=== PATIENT | female | born 2000 | race Two or more races ===

== ENCOUNTER 2024-07-08 20:49 | Emergency (ER) | payer OTHER ==
[2024-07-08 21:14] VITALS: O2SAT 98
[2024-07-08 21:30] LABS: BILIRUBIN,URINE NEGATIVE (NEGATIVE); GLUCOSE, URINE (UA) NEGATIVE (NEGATIVE); KETONES,URINE (UA) NEGATIVE (NEGATIVE); LEUKOCYTE ESTERASE, URINE NEGATIVE (NEGATIVE); NITRITE,URINE NEGATIVE (NEGATIVE); OCCULT BLOOD,URINE TRACE-INTA (NEGATIVE); PH,URINE 5.5 PH (5.0-7.5); PROTEIN,URINE NEGATIVE (NEGATIVE); UROBILINOGEN,URINE 0.2 (NORMAL) E.U./dL (NORMAL)
[2024-07-08 21:31] LABS: BASOPHILS % (AUTO) 0.3 %; EOSINOPHILS # (AUTO) 0.1 10^3/uL (0.0-0.7); EOSINOPHILS % (AUTO) 1.3 %; HCT - HEMATOCRIT 44.2 % (37.0-47.0); HGB - HEMOGLOBIN 15.4 g/dL (12.0-16.0); LYMPHOCYTES # (AUTO) 2.2 10^3/uL (1.5-3.5); LYMPHOCYTES % (AUTO) 23.4 %; MEAN CORPUSCULAR HEMOGLOBIN 30.2 pg (27.0-31.0); MEAN CORPUSCULAR HGB CONC 34.8 g/dL (32.0-36.0); MEAN CORPUSCULAR VOLUME 86.7 fL (81.0-99.0); MEAN PLATELET VOLUME 9.5 fL (7.9-10.8); MONOCYTES # (AUTO) 0.7 10^3/uL (0.0-1.0); MONOCYTES % (AUTO) 6.9 %; NEUTROPHILS # (AUTO) 6.5 10^3/uL (1.5-6.6); NEUTROPHILS % (AUTO) 67.6 %; PLT - PLATELET COUNT 364 10^3/uL (130-450); RED CELL DISTRIBUTION WIDTH 11.9 % (12.0-15.0); WHITE BLOOD COUNT 9.6 x10^3/uL (4.8-10.8)
[2024-07-08 21:35] LABS: CLARITY,URINE CLEAR (CLEAR)
[2024-07-08 21:47] LABS: ALBUMIN 4.9 g/dL (3.2-5.5); ALBUMIN/GLOBULIN RATIO 2.1 (1.0-2.2); BILIRUBIN,TOTAL 0.3 mg/dL (0.2-1.0); CALCIUM 10.1 mg/dL (8.5-10.3); CREATININE 0.8 mg/dL (0.6-1.3); TOTAL PROTEIN 7.2 g/dL (6.4-8.9)
[2024-07-08 22:17] LABS: HCG UR QUAL NEGATIVE
--- NOTE | 2024-07-08 22:46 | ED Physician Documentation ---
PD HPI ABD PAIN - Stated complaint Stated Complaint: R SIDE PX - Chief complaint Chief Complaint: Abd Pain - History obtained from History obtained from: Patient - History of Present Illness Timing - onset: Yesterday Timing - duration: Days (2) Timing - details: Gradual onset Pain level max: 10 Pain level now: 8 Quality: Aching, Pain Associated symptoms: No: Fever, Vomiting, Hematemesis, Diarrhea, Constipation, Melena, Hematochezia, Dysuria, Hematuria, Chest pain, Vaginal bleeding, Vaginal dc - Additional information Additional information: Patient is a 23-year-old female who presents to the emergency department right lower quadrant abdominal pain. This been ongoing since yesterday and gradually worsening. Nothing seems to make it better or worse. Has a history of a partial hysterectomy. Her right ovary was removed. No vomiting. No diarrhea. No constipation. No change in sexual partners. No vaginal bleeding or discharge. No urinary symptoms. No fevers. No chills. No recent antibiotics. No recent travel. Review of Systems Constitutional: denies: Fever, Chills Respiratory: denies: Cough GI: denies: Nausea, Vomiting, Diarrhea Skin: denies: Rash Musculoskeletal: denies: Neck pain, Back pain Neurologic: denies: Headache PD PAST MEDICAL HISTORY - Past Medical History Past Medical History: Yes MECHANICAL DETAILER: Endometriosis Other Past Medical History: POTS - Past Surgical History Past Surgical History: Yes /MECHANICAL DETAILER: Hysterectomy - Present Medications Home Medications: Ambulatory Orders Medication Instructions Recorded Confirmed Ketorolac [Toradol] 10 mg PO Q6H PRN #20 tablet 07/09/24 - Allergies Allergies/Adverse Reactions: Allergies Allergy/AdvReac Type Severity Reaction Status Date / Time azithromycin Allergy Emesis Verified 07/08/24 21:03 codeine Allergy Respiratory Verified 07/08/24 21:02 hydromorphone [From Dilaudid] Allergy Respiratory Verified 07/08/24 21:03 metoclopramide [From Reglan] AdvReac Hallucinati Verified 07/08/24 21:03 ons - Social History Does the pt smoke?: No Smoking Status: Never smoker Does the pt drink ETOH?: No Does the pt have substance abuse?: No - Immunizations Immunizations are current?: Yes - POLST Patient has POLST: No PD ED PE NORMAL - Vitals Vital signs reviewed: Yes - General General: Alert and oriented X 3, No acute distress, Well developed/nourished - HEENT HEENT: Moist mucous membranes - Neck Neck: Supple, no meningeal sign - Cardiac Cardiac: RRR, Strong equal pulses - Respiratory Respiratory: No respiratory distress, Clear bilaterally - Abdomen Abdomen: Soft, Non distended, Other (Tender to palpation suprapubic, right lower quadrant and left lower quadrant. No peritoneal signs.) - Back Back: No CVA TTP, No spinal TTP - Derm Derm: Warm and dry - Extremities Extremities: No edema - Neuro Neuro: Alert and oriented X 3 - Psych Psych: Normal mood, Normal affect Results - Vitals Vitals: Vital Signs - 24 hr 07/08/24 07/08/24 21:04 23:09 Temperature 36.4 C L Heart Rate 118 H 85 Respiratory 16 18 Rate Blood Pressure 100/77 137/80 H O2 Saturation 98 98 Oxygen O2 Source Room air - Labs Labs: Laboratory Tests 07/08/24 07/08/24 07/08/24 21:15 21:15 21:26 WBC 9.6 RBC 5.10 Hgb 15.4 Hct 44.2 MCV 86.7 MCH 30.2 MCHC 34.8 RDW 11.9 L Plt Count 364 MPV 9.5 Neut # (Auto) 6.5 Lymph # (Auto) 2.2 Rogers # (Auto) 0.7 Eos # (Auto) 0.1 Baso # (Auto) 0.0 Absolute Nucleated RBC 0.00 Nucleated RBC % 0.0 Sodium Potassium Chloride Carbon Dioxide Anion Gap BUN Creatinine Estimated GFR (MDRD) Glucose Calcium Total Bilirubin AST ALT Alkaline Phosphatase Total Protein Albumin Globulin Albumin/Globulin Ratio Lipase Urine Color YELLOW Urine Clarity CLEAR Urine pH 5.5 Ur Specific Otis 1.020 Urine Protein NEGATIVE Urine Glucose (UA) NEGATIVE Urine Ketones NEGATIVE Urine Occult Blood TRACE-INTA Urine Nitrite NEGATIVE Urine Bilirubin NEGATIVE Urine Urobilinogen 0.2 (NORMAL) Ur Leukocyte Esterase NEGATIVE Ur Microscopic Review NOT INDICATED Urine Culture Comments NOT INDICATED Urine HCG, Qual NEGATIVE 07/08/24 21:26 WBC RBC Hgb Hct MCV MCH MCHC RDW Plt Count MPV Neut # (Auto) Lymph # (Auto) Rogers # (Auto) Eos # (Auto) Baso # (Auto) Absolute Nucleated RBC Nucleated RBC % Sodium 135 Potassium 4.0 Chloride 103 Carbon Dioxide 24 Anion Gap 8.0 BUN 16 Creatinine 0.8 Estimated GFR (MDRD) 87 L Glucose 104 Calcium 10.1 Total Bilirubin 0.3 AST 12 ALT 9 L Alkaline Phosphatase 66 Total Protein 7.2 Albumin 4.9 Globulin 2.3 Albumin/Globulin Ratio 2.1 Lipase 52 Urine Color Urine Clarity Urine pH Ur Specific Otis Urine Protein Urine Glucose (UA) Urine Ketones Urine Occult Blood Urine Nitrite Urine Bilirubin Urine Urobilinogen Ur Leukocyte Esterase Ur Microscopic Review Urine Culture Comments Urine HCG, Qual - Rads (name of study) Pelvic ultrasound Relevant Findings:: Final report received, See rad report CT abdomen and pelvis Relevant Findings:: Final report received, See rad report PD Medical Decision Making - ED course Complexity details: reviewed results, re-evaluated patient, considered differential, d/w patient ED course: 23-year-old female with pelvic pain. Has a large ovarian cyst on her left ovary. She has had a partial hysterectomy in the past. Has a history of Neil-Danlos syndrome. Is followed by the [facility] gynecology. Does not have any evidence of torsion currently, did discuss the case with Dr. Beltre, gynecology on-call, recommends that if her pain cannot be controlled, that she be placed into observation and they can discuss surgical removal of the cyst. He states that this would likely be better done at a larger facility as there could be risk of damage to her low and remaining ovary. Patient's pain is well-controlled after a dose of Toradol. She requests a Toradol prescription for home. This was done. She does not want to stay in the hospital at this time and I think that is reasonable. Her CT scan shows a normal appendix. She will follow-up with her land degradation analyst for further care. Patient counseled regarding signs and symptoms for which I believe and urgent re-evaluation would be necessary. Patient with good understanding of and agreement to plan and is comfortable going home at this time This document was made in part using voice recognition software. While efforts are made to proofread this document, sound alike and grammatical errors may occur. Departure - Departure Disposition: Home, Self Care Clinical Impression: Ovarian cyst Qualifiers: Laterality: left Qualified Code(s): N83.202 - Unspecified ovarian cyst, left side Condition: Good Instructions: ED Cyst Ovarian Follow-Up: your,doctor in 1 week [Other] Prescriptions: Ketorolac [Toradol] 10 mg PO Q6H PRN #20 tablet PRN Reason: back pain Comments: As we discussed you have a left-sided ovarian cyst.As we discussed you have a left-sided ovarian cyst. This is approximately 6.3 x 3.4 x 5 cm. This is likely the cause of your pain. There is no evidence of torsion or twisting at this time. Your CT shows a normal appendix. Your prescription was sent to [facility] in [place]. Please return if you worsen. Please follow-up with your land degradation analyst at the [facility]. PROCEDURE: Pelvic w/Transvag+Doppler Comp INDICATIONS: pelvic pain TECHNIQUE: Real-time scanning was performed of the pelvic organs, with image documentation. Additional endovaginal scanning was necessary due to incomplete visualization of the adnexal and endometrial structures by transabdominal scanning. Doppler interrogation was performed of the left ovary. COMPARISON: None. FINDINGS: Uterus: Absent. Ovaries: Right ovary is absent. Left ovary measures 5.8 x 4 x 6.8 cm, volume of 82 mL. There is an anechoic cyst without internal complexity measuring 6.3 x 3.4 x 5 cm. Venous and arterial waveforms are present. Other: No pathologic free abdominal or pelvic fluid. IMPRESSION: Simple appearing left ovarian cyst measuring 6.3 x 3.4 x 5 cm. There is normal arterial and venous waveforms of the left ovary at time of study. Intermittent torsion not excluded. Recommend 6-12 week follow-up ultrasound per SRU guidelines, given symptoms. PROCEDURE: Abdomen/Pelvis W INDICATIONS: RLQ abd pain CONTRAST: OMNI 300, 100mls TECHNIQUE: After the administration of intravenous contrast, a CT scan of the abdomen and pelvis was performed. Images were recorded and evaluated at appropriate window settings. Reformats: coronal and sagittal. For radiation dose reduction, the following was used: automated exposure control, adjustment of mA and/or kV according to patient size. COMPARISON: Same day pelvic ultrasound. FINDINGS: Image quality: Diagnostic. Lower chest: Unremarkable. Liver: No solid mass. Gallbladder: No radiopaque stones or wall thickening. Biliary tree: No intrahepatic or extrahepatic dilation, accounting for age. Spleen: No splenomegaly. Pancreas: No pancreatic ductal dilation. Adrenals: No adrenal nodule. Kidneys and ureters: No hydronephrosis. No renal cystic lesion which requires follow up. No solid mass. Stomach, bowel and peritoneum: No gastric or small bowel dilation. No abnormal wall thickening. No pathologic free fluid. Normal appendix. Lymph nodes: No central or retroperitoneal adenopathy. Vessels: No infrarenal aortic aneurysm. Patent portal vein. PELVIS Reproductive organs: Uterus is absent. Left ovarian cyst. Right nephrectomy. Bladder: No abnormal wall thickening, accounting for underdistention. Pelvic lymph nodes: No pelvic adenopathy by size criteria. Bones: No aggressive osseous abnormality. Questionable early sacroiliitis, left greater than right. Other: No significant ventral or inguinal hernia. IMPRESSION: No findings to explain the patient's right lower quadrant pain. Normal appendix. Normal gallbladder. No nephrolithiasis. Questionable early bilateral sacroiliitis. Sacroiliitis has association with other syndromes, including inflammatory bowel disease. Left ovarian cyst, better characterized on the same pelvic ultrasound. Forms: PCP List
[2024-07-08] MEDS ORDERED: iohexoL-300 100 ML VIAL ONE (22:57)
--- NOTE | 2024-07-08 23:22 | Ultrasound Report ---
PROCEDURE: Pelvic w/Transvag+Doppler Comp INDICATIONS: pelvic pain TECHNIQUE: Real-time scanning was performed of the pelvic organs, with image documentation. Additional endovagi nal scanning was necessary due to incomplete visualization of the adnexal and endometrial structures by transabdominal scanning. Doppler interrogation was performed of the left ovary. COMPARISON: None. FINDINGS: Uterus: Absent. Ovaries: Right ovary is absent. Left ovary measures 5.8 x 4 x 6.8 cm, volume of 82 mL. There is an an echoic cyst without internal complexity measuring 6.3 x 3.4 x 5 cm. Venous and arterial waveforms are present. Other: No pathologic free abdominal or pelvic fluid. IMPRESSION: Simple appearing left ovarian cyst measuring 6.3 x 3.4 x 5 cm. There is normal arterial and venous wa veforms of the left ovary at time of study. Intermittent torsion not excluded. Recommend 6-12 week follow-up ultrasound per SRU guidelines, given symptoms. Reviewed by: Bertram Acuña MD on 07/08/2024 11:20 PM PDT Approved by: Bertram Acuña MD on 07/08/2024 11:20 PM PDT Station ID: [id number]
[2024-07-08] MEDS: KETOROLAC 30 MG/ML VIAL IVP STA (23:23)
[2024-07-08 23:30] VITALS: BP 137/80
[2024-07-08] MEDS: iohexoL-300 100 ML VIAL IVP ONE (23:52)
[2024-07-08] MEDS: ONDANSETRON 4 MG/2 ML VIAL IVP STA ×2 (23:56→23:57)
--- NOTE | 2024-07-09 00:02 | CT Report ---
PROCEDURE: Abdomen/Pelvis W INDICATIONS: RLQ abd pain CONTRAST: OMNI 300, 100mls TECHNIQUE: After the administration of intravenous contrast, a CT scan of the abdomen and pelvis was performed. Images were recorded and evaluated at appropriate window settings. Reformats: coronal and sagittal. F or radiation dose reduction, the following was used: automated exposure control, adjustment of mA and /or kV according to patient size. COMPARISON: Same day pelvic ultrasound. FINDINGS: Image quality: Diagnostic. Lower chest: Unremarkable. Liver: No solid mass. Gallbladder: No radiopaque stones or wall thickening. Biliary tree: No intrahepatic or extrahepatic dilation, accounting for age. Spleen: No splenomegaly. Pancreas: No pancreatic ductal dilation. Adrenals: No adrenal nodule. Kidneys and ureters: No hydronephrosis. No renal cystic lesion which requires follow up. No solid mas s. Stomach, bowel and peritoneum: No gastric or small bowel dilation. No abnormal wall thickening. No pa thologic free fluid. Normal appendix. Lymph nodes: No central or retroperitoneal adenopathy. Vessels: No infrarenal aortic aneurysm. Patent portal vein. PELVIS Reproductive organs: Uterus is absent. Left ovarian cyst. Right nephrectomy. Bladder: No abnormal wall thickening, accounting for underdistention. Pelvic lymph nodes: No pelvic adenopathy by size criteria. Bones: No aggressive osseous abnormality. Questionable early sacroiliitis, left greater than right. Other: No significant ventral or inguinal hernia. IMPRESSION: No findings to explain the patient's right lower quadrant pain. Normal appendix. Normal gallbladder. No nephrolithiasis. Questionable early bilateral sacroiliitis. Sacroiliitis has association with other syndromes, includi ng inflammatory bowel disease. Left ovarian cyst, better characterized on the same pelvic ultrasound. Reviewed by: Bertram Acuña MD on 07/09/2024 12:01 AM PDT Approved by: Bertram Acuña MD on 07/09/2024 12:01 AM PDT Station ID: [id number]
[2024-07-09] MEDS: KETOROLAC 30 MG/ML VIAL IVP STA (00:19)
== END 2024-07-09 00:27 | disposition home or self-care (01) ==
LOC: ED 20:49
DX: N83.202 Unspecified ovarian cyst, left side (principal); Q79.60 Ehlers-Danlos syndrome, unspecified
CPT/HCPCS: 36415; 74177; 76830; 76856; 80053; 81003; 81025; 83690; 85025; 93975; 96374; 96375; 96376; 99284; Q9967; 81001; 87086